=== PATIENT | female | born 1970 | race Caucasian/White ===

== ENCOUNTER 2022-03-20 17:57 | Emergency (ER) | payer OTHER ==
[~2022-03-20] VITALS: Ht 165.1 cm; Wt 75.0 kg
[2022-03-20 18:07] VITALS: BP 120/64
[2022-03-20] MEDS ORDERED: MECL-159 MT (19:14)
== END 2022-03-20 19:25 | disposition home or self-care (01) ==
LOC: ER 17:57
DX: Z76.0 Encounter for issue of repeat prescription (principal); R42 Dizziness and giddiness
CPT/HCPCS: 99282